=== PATIENT | male | born 2000 | race Caucasian/White ===

== ENCOUNTER 2021-02-20 00:51 | Emergency (ER) | payer MEDICAID ==
[~2021-02-20] VITALS: Ht 167.6 cm; Wt 60.0 kg
[2021-02-20 03:21] VITALS: BP 118/54
== END 2021-02-20 03:22 | disposition home or self-care (01) ==
LOC: ER 00:51 → EDBD 00:51 → ER 03:22
DX: T51.0X1A Toxic effect of ethanol, accidental (unintentional), initial encounter (principal); F12.10 Cannabis abuse, uncomplicated; Y92.89 Other specified places as the place of occurrence of the external cause
CPT/HCPCS: 99283